=== PATIENT | female | born 1990 | race Caucasian/White ===

== ENCOUNTER 2018-03-20 18:40 | Emergency (ER) | payer SELFPAY ==
[~2018-03-20] VITALS: Ht 160 cm; Wt 80.7 kg
--- NOTE | 2018-03-20 18:54 | ED.ADGEN ---
Past History Past Medical History: UTI Additional Past Medical Histor: ovarian cysts Adult General Chief Complaint Chief Complaint ".. I ve had pelvic problems for a while... I ve followed at [facility]... they think I have an abnormality around my uterus. ... "..." I am trying to get rescheduled back in for another laparotomy." " The pain was too much tonight..." HPI HPI Patient is a 27 year old female who presents with above hx and complaints severe abdomen pain, nausea and vomiting. Pt. has been vomiting the last two days. Pain is generally in the lower pelvic area. Does appear more to the left. Does have rebound to the left. No history of trauma. No history of travel. No history of specific ill contacts. Has had approximately 25 sexual partners. No history of STDs. No history of bad food. History immunosuppression. Patient has an implantable control in Lt. arm. No hx of colitis or renal stones. Pt. has never had a colon scopic eval. Review of Systems Review of Systems Constitutional: Denies fever or chills [] Eyes: Denies change in visual acuity, redness, or eye pain [] HENT: Denies nasal congestion or sore throat [] Respiratory: Denies cough or shortness of breath [] Cardiovascular: No additional information not addressed in HPI [] GI: Complains of lower pelvic abdominal pain, nausea, vomiting,. Denies bloody stools or diarrhea [] : Denies dysuria or hematuria [] Musculoskeletal: Denies back pain or joint pain [] Integument: Denies rash or skin lesions [] Neurologic: Denies headache, focal weakness or sensory changes [] Endocrine: Denies polyuria or polydipsia [] All other systems were reviewed and found to be within normal limits, except as documented in this note. Family History Family History Noncontributory Current Medications Current Medications Current Medications Medications (Trade) Dose Ordered Sig/Mariely Start Time Stop Time Status Last Admin Dose Admin Ceftriaxone Sodium 1 gm/ Sodium Chloride 50 ml @ 100 mls/hr 1X ONCE 03/20/18 20:15 03/20/18 20:44 DC 03/20/18 21:07 100 MLS/HR Ceftriaxone Sodium (Rocephin) 1 gm STK-MED ONCE 03/20/18 20:37 03/20/18 20:38 DC Famotidine (Pepcid Vial) 20 mg 1X ONCE 03/20/18 19:30 03/20/18 19:31 DC 03/20/18 19:45 20 MG Iohexol (Omnipaque 240 Mg/ml) 30 ml 1X ONCE 03/20/18 20:30 03/20/18 20:31 DC 03/20/18 21:54 30 ML Iohexol (Omnipaque 300 Mg/ml) 75 ml 1X ONCE 03/20/18 20:30 03/20/18 20:31 DC 03/20/18 21:55 75 ML Ketorolac Tromethamine (Toradol 30mg Vial) 30 mg 1X ONCE 03/20/18 21:30 03/20/18 21:31 DC 03/20/18 21:26 30 MG Lactated Ringer's 1,000 ml @ 75 mls/hr 1X ONCE 03/20/18 21:15 03/20/18 23:40 DC 03/20/18 21:08 75 MLS/HR Magnesium Hydroxide (Milk Of Magnesia) 2,400 mg 1X ONCE 03/20/18 22:45 03/20/18 22:46 DC 03/20/18 22:58 2,400 MG Metronidazole 100 ml @ 100 mls/hr 1X ONCE 03/20/18 20:15 03/20/18 21:14 DC 03/20/18 22:07 100 MLS/HR Morphine Sulfate (Morphine 10mg Syringe) 10 mg 1X ONCE 03/20/18 19:30 03/20/18 19:31 DC 03/20/18 19:30 10 MG Ondansetron HCl (Zofran) 8 mg 1X ONCE 03/20/18 19:30 03/20/18 19:31 DC 03/20/18 19:45 8 MG Sodium Chloride 50 ml @ As Directed STK-MED ONCE 03/20/18 20:37 03/20/18 20:38 DC Allergies Allergies Allergies Coded Allergies Type Severity Reaction Last Updated Verified metoclopramide Allergy Unknown 03/20/18 Yes prochlorperazine Allergy Unknown 03/20/18 Yes sumatriptan Allergy Unknown 03/20/18 Yes Physical Exam Physical Exam Constitutional: Moderately acute distress, non-toxic appearance. [] HENT: Normocephalic, atraumatic, bilateral external ears normal, oropharynx moist, no oral exudates, nose normal. [] Eyes: PERRLA, EOMI, conjunctiva normal, no discharge. [] Neck: Normal range of motion, no tenderness, supple, no stridor. [] Cardiovascular:Heart rate regular rhythm, no murmur [] Lungs & Thorax: Bilateral breath sounds clear to auscultation [] Abdomen: Bowel sounds normal, soft, lower pelvic tenderness, no masses, no pulsatile masses. [] Vaginal exam has some mild discharge. Some cervical motion tenderness. Some adnexal tenderness on the left. Skin: Warm, dry, no erythema, no rash. [] Back: No tenderness, no CVA tenderness. [] Extremities: No tenderness, no cyanosis, no clubbing, ROM intact, no edema. [] Neurologic: Alert and oriented X 3, normal motor function, normal sensory function, no focal deficits noted. [] Psychologic: Affect anxious, judgement normal, mood normal. [] Current Patient Data Vital Signs Vital Signs Date Time Temp Pulse Resp B/P (MAP) Pulse Ox O2 Delivery O2 Flow Rate FiO2 03/20/18 23:14 95 20 122/46 (71) 98 Room Air 03/20/18 18:50 99.1 Lab Results Laboratory Tests Test 03/20/18 19:00 03/20/18 19:06 03/20/18 19:49 Urine Collection Type Clean catch Urine Color [place] Urine Clarity Clear Urine pH 5.5 Urine Specific [place] 1.025 Urine Protein Neg (NEG-TRACE) Urine Glucose (UA) Neg mg/dL (NEG) Urine Ketones (Stick) 15 mg/dL (NEG) Urine Blood Neg (NEG) Urine Nitrite Neg (NEG) Urine Bilirubin Neg (NEG) Urine Urobilinogen Dipstick 0.2 mg/dL (0.2 mg/dL) Urine Leukocyte Esterase Neg (NEG) Urine RBC 0 /HPF (0-2) Urine WBC 1-4 /HPF (0-4) Urine Squamous Epithelial Cells Occ /LPF Urine Bacteria Few /HPF (0-FEW) Urine Mucus Mod /LPF Urine Opiates Screen Neg (NEG) Urine Methadone Screen Neg (NEG) Urine Barbiturates Neg (NEG) Urine Phencyclidine Screen Neg (NEG) Urine Amphetamine/Methamphetamine Neg (NEG) Urine Benzodiazepines Screen Neg (NEG) Urine Cocaine Screen Neg (NEG) Urine Cannabinoids Screen Neg (NEG) Urine Ethyl Alcohol Neg (NEG) POC Urine HCG, Qualitative hcg negative (Negative) White Blood Count 6.5 x10^3/uL (4.0-11.0) Red Blood Count 4.44 x10^6/uL (3.50-5.40) Hemoglobin 13.7 g/dL (12.0-15.5) Hematocrit 39.1 % (36.0-47.0) Mean Corpuscular Volume 88 fL (79-100) Mean Corpuscular Hemoglobin 31 pg (25-35) Mean Corpuscular Hemoglobin Concent 35 g/dL (31-37) Red Cell Distribution Width 12.7 % (11.5-14.5) Platelet Count 245 x10^3/uL (140-400) Neutrophils (%) (Auto) 46 % (31-73) Lymphocytes (%) (Auto) 45 % (24-48) Monocytes (%) (Auto) 9 % (0-9) Eosinophils (%) (Auto) 0 % (0-3) Basophils (%) (Auto) 1 % (0-3) Neutrophils # (Auto) 3.0 x10^3uL (1.8-7.7) Lymphocytes # (Auto) 2.9 x10^3/uL (1.0-4.8) Monocytes # (Auto) 0.6 x10^3/uL (0.0-1.1) Eosinophils # (Auto) 0.0 x10^3/uL (0.0-0.7) Basophils # (Auto) 0.0 x10^3/uL (0.0-0.2) Prothrombin Time 10.3 SEC (9.4-11.4) Prothrombin Time INR 1.0 (0.9-1.1) PTT 27 SEC (23-33) Sodium Level 138 mmol/L (136-145) Potassium Level 3.7 mmol/L (3.5-5.1) Chloride Level 104 mmol/L (98-107) Carbon Dioxide Level 25 mmol/L (21-32) Anion Gap 9 (6-14) Blood Urea Nitrogen 11 mg/dL (7-20) Creatinine 0.9 mg/dL (0.6-1.0) Estimated GFR (Cockcroft-Gault) 75.1 Glucose Level 85 mg/dL (70-99) Calcium Level 9.5 mg/dL (8.5-10.1) Total Bilirubin 0.4 mg/dL (0.2-1.0) Direct Bilirubin 0.1 mg/dL (0.0-0.2) Aspartate Amino Transferase (AST) 18 U/L (15-37) Alanine Aminotransferase (ALT) 32 U/L (14-59) Alkaline Phosphatase 113 U/L (46-116) Total Protein 7.5 g/dL (6.4-8.2) Albumin 3.9 g/dL (3.4-5.0) Lipase 227 U/L (73-393) Microbiology 03/20/18 Wet Prep - Final, Complete Microbiology 03/20/18 Wet Prep - Final, Complete EKG EKG [] Radiology/Procedures Radiology/Procedures My interpretation of acute abdomen film shows no acute cardiopulmonary findings. No free air in the diaphragm. Nonobstructive bowel gas pattern.[] Course & Med Decision Making Course & Med Decision Making Pertinent Labs and Imaging studies reviewed. (See chart for details) Push fluids. Take tylenol and ibuprofen for pain. Take vicoprofen up 4 x day for marked pain. Clear fluids only x 48 hrs to allow bowel rest. Keep follow up with primary. Re-exam if no improvement. Zofran for nausea and vomiting. [] Final Impression Final Impression 1. Abdomen pain[] 2. Ovarian Cyst.- Polycystic ovarian Dragon Disclaimer Dragon Disclaimer This electronic medical record was generated, in whole or in part, using a voice recognition dictation system. EMY ABEL MD Mar 20, 2018 18:54
[2018-03-20] MEDS ORDERED: ONDANSETRON PF 4 MG/2 ML VIAL. IV ONE (19:30)
[2018-03-20] MEDS ORDERED: MORPHINE SULFATE 10 MG/ML SYRINGE. SQ ONE (19:30)
[2018-03-20] MEDS ORDERED: FAMOTIDINE 20 MG/2 ML VIAL IVP ONE (19:30)
[2018-03-20] MEDS ORDERED: IV RINGERS SOLUTION,LACTATED 1,000 ML IV SCH (19:30)
[2018-03-20 19:32] LABS: AMPHETAMINE/METHAMPHETAMINE NEG (NEG); BARBITURATES NEG (NEG); BENZODIAZEPINES NEG (NEG); CANNABINOIDS NEG (NEG); COCAINE NEG (NEG); METHADONE NEG (NEG); OPIATES NEG (NEG); PHENCYCLIDINE NEG (NEG)
[2018-03-20 19:34] LABS: BILIRUBIN,URINE NEG (NEG); CLARITY,URINE CLEAR; COLOR,URINE AMBER; GLUCOSE,URINE NEG (NEG)
[2018-03-20 19:35] LABS: BACTERIA,URINE FEW /HPF (0-FEW); NITRITE,URINE NEG (NEG); RBC,URINE 0 /HPF (0-2); SQUAMOUS EPITHELIAL CELL,UR OCC /LPF; UROBILINOGEN,URINE 0.2 mg/dL (0.2 mg/dL)
--- NOTE | 2018-03-20 19:47 | RAD ---
EXAM: Two view abdomen with one view chest HISTORY: Abdominal pain, fever, nausea. COMPARISON: None. FINDINGS: A frontal view of the chest and supine/upright views of the abdomen are obtained. There are no confluent infiltrates. There is no pneumothorax or pleural effusion. The heart is not enlarged. There is no pneumoperitoneum. There are no distended small bowel loops or significant air-fluid levels. There is gas distally. IMPRESSION: 1. No confluent infiltrates. 2. No evidence of obstruction. Electronically signed by: Lexie Hall MD (03/20/2018 7:44 PM) [facility]
[2018-03-20 20:12] LABS: BASO % 1 % (0-3); EOS % 0 % (0-3); HEMATOCRIT 39.1 % (36.0-47.0); HEMOGLOBIN 13.7 g/dL (12.0-15.5); LYMPH # 2.9 x10^3/uL (1.0-4.8); LYMPH % 45 % (24-48); MEAN CORPUSCULAR HEMOGLOBIN 31 pg (25-35); MEAN CORPUSCULAR HGB CONC 35 g/dL (31-37); MEAN CORPUSCULAR VOLUME 88 fL (79-100); MONO # 0.6 x10^3/uL (0.0-1.1); MONO % 9 % (0-9); NEUT % 46 % (31-73); PLATELET COUNT 245 x10^3/uL (140-400); RED BLOOD COUNT 4.44 x10^6/uL (3.50-5.40); RED CELL DISTRIBUTION WIDTH 12.7 % (11.5-14.5); WHITE BLOOD COUNT 6.5 x10^3/uL (4.0-11.0)
[2018-03-20 20:25] LABS: ALBUMIN 3.9 g/dL (3.4-5.0); CALCIUM 9.5 mg/dL (8.5-10.1); CREATININE 0.9 mg/dL (0.6-1.0); DIRECT BILIRUBIN 0.1 mg/dL (0.0-0.2); GFR 75.1; POTASSIUM 3.7 mmol/L (3.5-5.1); TOTAL BILIRUBIN 0.4 mg/dL (0.2-1.0); TOTAL PROTEIN 7.5 g/dL (6.4-8.2)
[2018-03-20] MEDS ORDERED: IOHEXOL 240 MG/ML 50ML VIAL. PO ONE (20:30)
[2018-03-20] MEDS ORDERED: IOHEXOL 300 MG/ML 75 ML VIAL. IV ONE (20:30)
[2018-03-20] MEDS ORDERED: IV NORMAL SALINE 50ML 50 ML ONE (20:37)
[2018-03-20] MEDS ORDERED: cefTRIAXone SODIUM 1 GM VIAL IV ONE (20:37)
[2018-03-20] MEDS ORDERED: IV RINGERS SOLUTION,LACTATED 1,000 ML IV ONE (21:15)
[2018-03-20] MEDS ORDERED: KETOROLAC 30 MG/ML VIAL. IV ONE (21:30)
--- NOTE | 2018-03-20 22:14 | RAD ---
EXAM: CT ABDOMEN/PELVIS WITH CONTRAST. HISTORY: Abdominal pain, nausea and vomiting. TECHNIQUE: Computed tomography of the abdomen and pelvis was performed after the intravenous administration of 75 mL Omnipaque 300. COMPARISON: None. FINDINGS: Lung windows through the visualized portions of the bases reveal mild atelectasis. Bone windows reveal no suspicious lesions. The liver, spleen, adrenal glands, gallbladder, and pancreas are unremarkable. Tiny calculi are suspected in the right renal interpolar region measuring <2 mm. There are no ureteral calculi or hydronephrosis. Multiple peripheral ovarian follicles bilaterally suggest polycystic ovarian syndrome. The uterus is unremarkable. The appendix is not visualized but there is no evidence of appendicitis. There is no small bowel obstruction. No inflammatory changes are identified. IMPRESSION: 1. No cause for pain is identified. 2. Tiny <2 mm right renal calculus. 3. Correlate clinically for polycystic ovarian syndrome. *One or more of the following individualized dose reduction techniques were utilized for this examination: 1. Automated exposure control. 2. Adjustment of the mA and/or kV according to patient size. 3. Use of iterative reconstruction technique. Electronically signed by: Lexie Hall MD (03/20/2018 10:11 PM) [facility]
[2018-03-20] MEDS ORDERED: HYDR-79 PO (22:41)
[2018-03-20] MEDS ORDERED: ONDA8TAB12 PO (22:43)
[2018-03-20] MEDS ORDERED: MAGNESIUM HYDROXIDE 2,400 MG/30 ML ORAL.SUSP. PO ONE (22:45)
[2018-03-20] MEDS ORDERED: DOXY100T9 PO (22:57)
[2018-03-20 23:14] VITALS: BP 122/46
[2018-03-22 15:11] LABS: CHLAMYDIA PROBE Negative (Negative)
== END 2018-03-20 23:17 | disposition home or self-care (01) ==
LOC: ER 18:40
DX: E28.2 Polycystic ovarian syndrome (principal); Z87.440 Personal history of urinary (tract) infections; Z88.8 Allergy status to other drugs, medicaments and biological substances
CPT/HCPCS: 36415; 74022; 74177; 80048; 80076; 80307; 81001; 81025; 83690; 85025; 85610; 85730; 87480; 87491; 87510; 87591; 87660; 96361; 96365; 96372; 96375; 99285; J0696; J1885; J2270; J2405; J3490; J7120; Q0111; Q9966; Q9967; S0028; G0479

== ENCOUNTER 2018-03-27 16:35 | Emergency (ER) | payer SELFPAY ==
[~2018-03-27] VITALS: Ht 160 cm; Wt 81.6 kg
[~2018-03-27 16:35] MED LIST: DOXY100T9 PO; HYDR-79 PO; ONDA8TAB12 PO
--- NOTE | 2018-03-27 17:24 | PHYS DOC ---
Past History Past Medical History: UTI Additional Past Medical Histor: ovarian cysts Past Surgical History: Appendectomy, Tonsillectomy, Other Alcohol Use: Occasionally Drug Use: None Adult General Chief Complaint Chief Complaint: ABDOMINAL PAIN [place] [employer] HPI Patient is a 27 year old female who presents with complaining of left lower quadrant pain. Patient complaining of an onset of left lower quadrant pain since yesterday as a stabbing pain with radiation to her back and associated with nausea and rated her pain 10 out of 10. Patient states she was seen in this emergency room one week ago and was told she had ovarian cysts and thinks one of her ovarian cyst is bursting and causing the pain. Patient states she had prescription of Vicoprofen that helping for her pain but since she ran out of the pain medication her pain getting force. Patient denies , vaginal bleeding or discharge, fever and chills, vomiting and diarrhea, urinary symptom. Review of Systems Review of Systems Constitutional: Denies fever or chills [] Eyes: Denies change in visual acuity, redness, or eye pain [] HENT: Denies nasal congestion or sore throat [] Respiratory: Denies cough or shortness of breath [] Cardiovascular: No additional information not addressed in HPI [] GI: Reports abdominal pain, nausea, denies vomiting, bloody stools or diarrhea [ ] : Denies dysuria or hematuria [] Musculoskeletal: Denies back pain or joint pain [] Integument: Denies rash or skin lesions [] Neurologic: Denies headache, focal weakness or sensory changes [] Endocrine: Denies polyuria or polydipsia [] All other systems were reviewed and found to be within normal limits, except as documented in this note. Allergies Allergies Allergies Coded Allergies Type Severity Reaction Last Updated Verified metoclopramide Allergy Unknown 03/20/18 Yes prochlorperazine Allergy Unknown 03/20/18 Yes sumatriptan Allergy Unknown 03/20/18 Yes Physical Exam Physical Exam Constitutional: Well nourished, mild distress, non-toxic appearance. [] HENT: Normocephalic, atraumatic, oropharynx moist, no oral exudates, nose normal. [] Eyes: PERRLA, EOMI, conjunctiva normal, no discharge. [] Neck: Normal range of motion, no tenderness, supple, no stridor. [] Cardiovascular:Heart rate regular rhythm, no murmur [] Lungs & Thorax: Bilateral breath sounds clear to auscultation [] Abdomen: Bowel sounds normal, soft, left lower quadrant guarding, no tenderness , no masses, no pulsatile masses. [] Skin: Warm, dry, no erythema, no rash. [] Back: No tenderness, no CVA tenderness. [] Extremities: No tenderness, no cyanosis, no clubbing, ROM intact, no edema. [] Neurologic: Alert and oriented X 3, normal motor function, normal sensory function, no focal deficits noted. [] Psychologic: Affect anxious, judgement normal, mood normal. [] Current Patient Data Vital Signs Vital Signs Date Time Temp Pulse Resp B/P (MAP) Pulse Ox O2 Delivery O2 Flow Rate FiO2 03/27/18 16:40 99.9 109 20 96 Room Air EKG EKG [] Radiology/Procedures Radiology/Procedures [] Course & Med Decision Making Course & Med Decision Making Pertinent Labs and Imaging studies are pending. Evaluation of patient in ER showed 27-year-old female patient with complaining of left lower quadrant pain since last week that getting worse since yesterday. Labs and ultrasound of pelvic is pending. Patient's care transferred to Dr. James at 1800. Dragon Disclaimer Dragon Disclaimer This electronic medical record was generated, in whole or in part, using a voice recognition dictation system. Departure Departure: Impression: Primary Impression: Left lower quadrant pain Referrals: NON,STAFF (PCP) ANA SHEN MD Mar 27, 2018 17:24
[2018-03-27] MEDS ORDERED: KETOROLAC 30 MG/ML VIAL. IV ONE (17:30)
[2018-03-27] MEDS ORDERED: ONDANSETRON PF 4 MG/2 ML VIAL. IV ONE (17:30)
[2018-03-27] MEDS ORDERED: IV NORMAL SALINE 1,000ML 1,000 ML IV SCH (17:30)
[2018-03-27 17:50] LABS: BASO % 1 % (0-3); EOS % 0 % (0-3); HEMATOCRIT 37.9 % (36.0-47.0); HEMOGLOBIN 13.1 g/dL (12.0-15.5); LYMPH # 2.7 x10^3/uL (1.0-4.8); LYMPH % 49 % (24-48); MEAN CORPUSCULAR HEMOGLOBIN 31 pg (25-35); MEAN CORPUSCULAR HGB CONC 35 g/dL (31-37); MEAN CORPUSCULAR VOLUME 89 fL (79-100); MONO # 0.3 x10^3/uL (0.0-1.1); MONO % 5 % (0-9); NEUT # 2.6 x10^3uL (1.8-7.7); NEUT % 46 % (31-73); PLATELET COUNT 224 x10^3/uL (140-400); RED BLOOD COUNT 4.24 x10^6/uL (3.50-5.40); RED CELL DISTRIBUTION WIDTH 12.8 % (11.5-14.5); WHITE BLOOD COUNT 5.5 x10^3/uL (4.0-11.0)
[2018-03-27 17:53] LABS: BARBITURATES NEG (NEG); BENZODIAZEPINES NEG (NEG); CANNABINOIDS NEG (NEG); COCAINE NEG (NEG); METHADONE NEG (NEG); OPIATES POS (NEG); PHENCYCLIDINE NEG (NEG)
[2018-03-27 17:57] LABS: AMPHETAMINE/METHAMPHETAMINE NEG (NEG); BILIRUBIN,URINE NEG (NEG); CLARITY,URINE CLEAR; COLOR,URINE YELLOW; GLUCOSE,URINE NEG (NEG)
[2018-03-27 17:58] LABS: BACTERIA,URINE FEW /HPF (0-FEW); NITRITE,URINE NEG (NEG); SQUAMOUS EPITHELIAL CELL,UR MOD /LPF; UROBILINOGEN,URINE 0.2 mg/dL (0.2 mg/dL)
[2018-03-27 17:59] LABS: ALBUMIN 3.5 g/dL (3.4-5.0); ALBUMIN/GLOBULIN RATIO 1.1 (1.0-1.7); CALCIUM 8.6 mg/dL (8.5-10.1); CREATININE 0.9 mg/dL (0.6-1.0); GFR 75.1; POTASSIUM 3.9 mmol/L (3.5-5.1); TOTAL BILIRUBIN 0.2 mg/dL (0.2-1.0); TOTAL PROTEIN 6.6 g/dL (6.4-8.2)
[2018-03-27] MEDS ORDERED: HYDROcodone/APAP 5/325MG 1 TAB TABLET PO ONE (18:30)
--- NOTE | 2018-03-27 20:06 | RAD ---
Pelvic ultrasound History: Left lower quadrant pain Comparison: CT abdomen pelvis March 20, 2018 Technique: Transabdominal imaging of the pelvis was performed. Patient declined endovaginal imaging. Findings: The uterus measures 7.0 cm in length. Uterus is suboptimally visualized. Endometrial stripe is not well-seen, but does not appear grossly thickened. Ovaries are not seen. No gross adnexal masses are seen. Impression: 1. Limited examination. Electronically signed by: Carlos Lopez MD (03/27/2018 8:03 PM) [facility]
--- NOTE | 2018-03-27 20:16 | PHYS DOC ---
Past History Past Medical History: UTI Additional Past Medical Histor: ovarian cysts Past Surgical History: Appendectomy, Tonsillectomy, Other Alcohol Use: Occasionally Drug Use: None Adult General Chief Complaint Chief Complaint: ABDOMINAL PAIN HPI HPI Patient is a [age] year old [sex] who presents with [] Review of Systems Review of Systems See my colleague's note Current Medications Current Medications Current Medications Medications (Trade) Dose Ordered Sig/Mariely Start Time Stop Time Status Last Admin Dose Admin Acetaminophen/ Hydrocodone Bitart (Lortab 5/325) 1 tab 1X ONCE 03/27/18 18:30 03/27/18 18:31 DC 03/27/18 18:40 1 TAB Ketorolac Tromethamine (Toradol 30mg Vial) 30 mg 1X ONCE 03/27/18 17:30 03/27/18 17:31 DC 03/27/18 17:51 30 MG Ondansetron HCl (Zofran) 4 mg 1X ONCE 03/27/18 17:30 03/27/18 17:31 DC 03/27/18 17:52 4 MG Sodium Chloride 1,000 ml @ 1,000 mls/hr Q1H 03/27/18 17:30 03/27/18 18:29 DC 03/27/18 17:52 1,000 MLS/HR Allergies Allergies Allergies Coded Allergies Type Severity Reaction Last Updated Verified metoclopramide Allergy Unknown 03/20/18 Yes prochlorperazine Allergy Unknown 03/20/18 Yes sumatriptan Allergy Unknown 03/20/18 Yes Physical Exam Physical Exam See my colleague's note Current Patient Data Vital Signs Vital Signs Date Time Temp Pulse Resp B/P (MAP) Pulse Ox O2 Delivery O2 Flow Rate FiO2 03/27/18 18:40 22 Room Air 03/27/18 16:40 99.9 109 96 Lab Results Laboratory Tests Test 03/27/18 17:05 03/27/18 17:35 03/27/18 17:37 Urine Collection Type Void Urine Color Yellow Urine Clarity Clear Urine pH 6.0 Urine Specific [place] 1.015 Urine Protein Neg (NEG-TRACE) Urine Glucose (UA) Neg mg/dL (NEG) Urine Ketones (Stick) Neg mg/dL (NEG) Urine Blood Neg (NEG) Urine Nitrite Neg (NEG) Urine Bilirubin Neg (NEG) Urine Urobilinogen Dipstick 0.2 mg/dL (0.2 mg/dL) Urine Leukocyte Esterase Neg (NEG) Urine RBC 1-2 /HPF (0-2) Urine WBC 1-4 /HPF (0-4) Urine Squamous Epithelial Cells Mod /LPF Urine Bacteria Few /HPF (0-FEW) Urine Mucus Slight /LPF Urine Opiates Screen Pos (NEG) Urine Methadone Screen Neg (NEG) Urine Barbiturates Neg (NEG) Urine Phencyclidine Screen Neg (NEG) Urine Amphetamine/Methamphetamine Neg (NEG) Urine Benzodiazepines Screen Neg (NEG) Urine Cocaine Screen Neg (NEG) Urine Cannabinoids Screen Neg (NEG) Urine Ethyl Alcohol Neg (NEG) White Blood Count 5.5 x10^3/uL (4.0-11.0) Red Blood Count 4.24 x10^6/uL (3.50-5.40) Hemoglobin 13.1 g/dL (12.0-15.5) Hematocrit 37.9 % (36.0-47.0) Mean Corpuscular Volume 89 fL (79-100) Mean Corpuscular Hemoglobin 31 pg (25-35) Mean Corpuscular Hemoglobin Concent 35 g/dL (31-37) Red Cell Distribution Width 12.8 % (11.5-14.5) Platelet Count 224 x10^3/uL (140-400) Neutrophils (%) (Auto) 46 % (31-73) Lymphocytes (%) (Auto) 49 % (24-48) H Monocytes (%) (Auto) 5 % (0-9) Eosinophils (%) (Auto) 0 % (0-3) Basophils (%) (Auto) 1 % (0-3) Neutrophils # (Auto) 2.6 x10^3uL (1.8-7.7) Lymphocytes # (Auto) 2.7 x10^3/uL (1.0-4.8) Monocytes # (Auto) 0.3 x10^3/uL (0.0-1.1) Eosinophils # (Auto) 0.0 x10^3/uL (0.0-0.7) Basophils # (Auto) 0.0 x10^3/uL (0.0-0.2) Sodium Level 140 mmol/L (136-145) Potassium Level 3.9 mmol/L (3.5-5.1) Chloride Level 107 mmol/L (98-107) Carbon Dioxide Level 23 mmol/L (21-32) Anion Gap 10 (6-14) Blood Urea Nitrogen 11 mg/dL (7-20) Creatinine 0.9 mg/dL (0.6-1.0) Estimated GFR (Cockcroft-Gault) 75.1 BUN/Creatinine Ratio 12 (6-20) Glucose Level 141 mg/dL (70-99) H Calcium Level 8.6 mg/dL (8.5-10.1) Total Bilirubin 0.2 mg/dL (0.2-1.0) Aspartate Amino Transferase (AST) 18 U/L (15-37) Alanine Aminotransferase (ALT) 32 U/L (14-59) Alkaline Phosphatase 105 U/L (46-116) Total Protein 6.6 g/dL (6.4-8.2) Albumin 3.5 g/dL (3.4-5.0) Albumin/Globulin Ratio 1.1 (1.0-1.7) POC Urine HCG, Qualitative hcg negative (Negative) EKG EKG [] Radiology/Procedures Radiology/Procedures [] Impressions: Pelvic ultrasound History: Left lower quadrant pain Comparison: CT abdomen pelvis March 20, 2018 Technique: Transabdominal imaging of the pelvis was performed. Patient declined endovaginal imaging. Findings: The uterus measures 7.0 cm in length. Uterus is suboptimally visualized. Endometrial stripe is not well-seen, but does not appear grossly thickened. Ovaries are not seen. No gross adnexal masses are seen. Impression: 1. Limited examination. Electronically signed by: Carlos Claire MD (03/27/2018 8:03 PM) [facility] DICTATED AND SIGNED BY: CARLOS CLAIRE MD DATE: 03/27/182001 CC: MONIKA PETERS DO; ANA SHEN MD; NON,STAFF Course & Med Decision Making Course & Med Decision Making Pertinent Labs and Imaging studies reviewed. (See chart for details) I am taking over the patient from Dr. Shen at 1800. The patient's labs are unremarkable. Her ultrasound is limited because she refused a transvaginal. We'll was visualized is unremarkable. I do not see a source for the patient's discomfort. He does not appear to be life-threatening. Patient was already given pain medication by my colleague recently. The patient said many prescriptions in the last 1 year from more than a dozen providers. I stressed that she needs a primary physician to manage her. She is stable for discharge at this time. [] Dragon Disclaimer Dragon Disclaimer This electronic medical record was generated, in whole or in part, using a voice recognition dictation system. Departure Departure: Impression: Primary Impression: Left lower quadrant pain Referrals: NON,STAFF (PCP) MONIKA PETERS DO Mar 27, 2018 20:16
[2018-03-27 20:46] VITALS: BP 127/56
== END 2018-03-27 20:25 | disposition home or self-care (01) ==
LOC: ER 16:35
DX: R10.32 Left lower quadrant pain (principal); Z87.440 Personal history of urinary (tract) infections; Z90.89 Acquired absence of other organs; Z88.8 Allergy status to other drugs, medicaments and biological substances; Z88.1 Allergy status to other antibiotic agents
CPT/HCPCS: 36415; 76856; 80053; 80307; 81001; 81025; 85025; 96374; 96375; 99285; J1885; J2405; G0479; J7030

== ENCOUNTER 2018-07-17 01:45 | Emergency (ER) | payer BC ==
[~2018-07-17] VITALS: Ht 160 cm; Wt 86.2 kg
[~2018-07-17 01:45] MED LIST changes: +HYDR-1179 PO; -HYDR-79 PO
--- NOTE | 2018-07-17 02:03 | ED.ADGEN ---
Past History Past Medical History: Anxiety, Bipolar, Depression, GERD, Kidney Stones, Migraines, Ovarian Cyst, UTI Additional Past Medical Histor: ovarian cysts Past Surgical History: Appendectomy, Tonsillectomy, Other Alcohol Use: Occasionally Drug Use: None Adult General Chief Complaint Chief Complaint "... I having really bad abd. and Lt flank pain.. I can't sleep... It is really severe.. " HPI HPI Patient is a 27 year old female who presents with above hx and complaints left flank and abdomen pain. Patient states low level of pain started yesterday but has had severe pain all day. Patient states it's not like her kidney stone pain. Patient states nothing helps her makes it better. Patient did eat crackers today. Patient states she did have a small stool today. Patient denies any dysuria. Patient denies any trauma or specific ill contacts. Patient denies any history immunosuppression. No recent travel. No history of trauma. No contact with ill animals, poultry, reptiles or amphibians. Patient does have history of IBS, ovarian cysts, kidney stones, UTIs, constipation, depression, bipolar disorder, PTSD, anxiety disorder. Pt. has had a previous appendectomy, and exploratory laparoscopic scopic evaluations for evaluation for endometriosis. Pt. has hx of reportedly normal colon scopic exam. Patient denies any previous history of STDs. Patient has had approximately 25 different sexual partners. Patient denies any vaginal discharge currently. Patient normally follows with Dr. Camejo at [facility]. Review of Systems Review of Systems Constitutional: Denies fever or chills [] Eyes: Denies change in visual acuity, redness, or eye pain [] HENT: Denies nasal congestion or sore throat [] Respiratory: Denies cough or shortness of breath [] Cardiovascular: No additional information not addressed in HPI [] GI: Denies abdominal pain, nausea, vomiting, bloody stools or diarrhea [] : Denies dysuria or hematuria [] Musculoskeletal: Denies back pain or joint pain [] Integument: Denies rash or skin lesions [] Neurologic: Denies headache, focal weakness or sensory changes [] Endocrine: Denies polyuria or polydipsia [] All other systems were reviewed and found to be within normal limits, except as documented in this note. Family History Family History Noncontributory Current Medications Current Medications Current Medications Medications (Trade) Dose Ordered Sig/Mariely Start Time Stop Time Status Last Admin Dose Admin Info (Do NOT chart on this entry -- for MONITORING) 1 each PRN DAILY PRN 07/17/18 03:30 07/19/18 03:29 Iohexol (Omnipaque 240 Mg/ml) 50 ml 1X ONCE 07/17/18 03:30 07/17/18 03:31 DC 07/17/18 05:56 50 ML Iohexol (Omnipaque 300 Mg/ml) 75 ml 1X ONCE 07/17/18 03:30 07/17/18 03:31 DC 07/17/18 05:56 75 ML Ketorolac Tromethamine (Toradol 30mg Vial) 30 mg 1X ONCE 07/17/18 03:30 07/17/18 03:31 DC 07/17/18 03:22 30 MG Lactated Ringer's 1,000 ml @ 1,000 mls/hr 1X ONCE 07/17/18 03:30 07/17/18 04:29 DC 07/17/18 03:21 1,000 MLS/HR Magnesium Hydroxide (Milk Of Magnesia) 2,400 mg 1X ONCE 07/17/18 03:30 07/17/18 03:31 DC 07/17/18 03:30 2,400 MG Morphine Sulfate (Morphine 10mg Syringe) 10 mg 1X ONCE 07/17/18 04:30 07/17/18 04:31 DC 07/17/18 04:24 10 MG Ondansetron HCl (Zofran) 8 mg 1X ONCE 07/17/18 03:30 07/17/18 03:31 DC 07/17/18 03:22 8 MG Allergies Allergies Allergies Coded Allergies Type Severity Reaction Last Updated Verified metoclopramide Allergy Unknown 03/20/18 Yes prochlorperazine Allergy Unknown 03/20/18 Yes sumatriptan Allergy Unknown 03/20/18 Yes Physical Exam Physical Exam Constitutional: Well developed, well nourished, reports acute distress, non- toxic appearance. [] HENT: Normocephalic, atraumatic, bilateral external ears normal, oropharynx moist, no oral exudates, nose ring] Eyes: PERRLA, EOMI, conjunctiva normal, no discharge. [] Glasses Neck: Normal range of motion, no tenderness, supple, no stridor. [] Cardiovascular:Heart rate regular rhythm, no murmur [] Lungs & Thorax: Bilateral breath sounds equal at apexes with a few scattered wheezes on auscultation [] Abdomen: Bowel sounds hyperactive, soft, left abdomen and flank tenderness, no masses, no pulsatile masses. [] No true rebound. No true psoas. Old surgical scars. Distended. Patient more comfortable laying on her right side with legs bent up. Obese. Skin: Warm, dry, no erythema, no rash. [] Back: No tenderness, no CVA tenderness. [] Extremities: No tenderness, no cyanosis, no clubbing, ROM intact, no edema. [] Neurologic: Alert and oriented X 3, normal motor function, normal sensory function, no focal deficits noted. [] Psychologic: Affect very anxious, judgement normal, mood depressed. Current Patient Data Vital Signs Vital Signs Date Time Temp Pulse Resp B/P (MAP) Pulse Ox O2 Delivery O2 Flow Rate FiO2 07/17/18 04:55 18 98 Room Air 07/17/18 04:30 78 120/83 (95) 07/17/18 01:45 98.3 Lab Results Laboratory Tests Test 07/17/18 01:55 07/17/18 02:00 Urine Collection Type Unknown Urine Color Yellow Urine Clarity Clear Urine pH 7.0 Urine Specific [place] 1.025 Urine Protein Neg (NEG-TRACE) Urine Glucose (UA) Neg mg/dL (NEG) Urine Ketones (Stick) Neg mg/dL (NEG) Urine Blood Neg (NEG) Urine Nitrite Neg (NEG) Urine Bilirubin Neg (NEG) Urine Urobilinogen Dipstick 1 mg/dL (0.2 mg/dL) Urine Leukocyte Esterase Neg (NEG) Urine RBC 0 /HPF (0-2) Urine WBC Occ /HPF (0-4) Urine Squamous Epithelial Cells Few /LPF Urine Bacteria 0 /HPF (0-FEW) Urine Test Negative (NEG) Urine Opiates Screen Neg (NEG) Urine Methadone Screen Neg (NEG) Urine Barbiturates Neg (NEG) Urine Phencyclidine Screen Neg (NEG) Urine Amphetamine/Methamphetamine Neg (NEG) Urine Benzodiazepines Screen Neg (NEG) Urine Cocaine Screen Neg (NEG) Urine Cannabinoids Screen Neg (NEG) Urine Ethyl Alcohol Neg (NEG) White Blood Count 8.9 x10^3/uL (4.0-11.0) Red Blood Count 4.41 x10^6/uL (3.50-5.40) Hemoglobin 13.5 g/dL (12.0-15.5) Hematocrit 40.3 % (36.0-47.0) Mean Corpuscular Volume 91 fL (79-100) Mean Corpuscular Hemoglobin 31 pg (25-35) Mean Corpuscular Hemoglobin Concent 34 g/dL (31-37) Red Cell Distribution Width 12.9 % (11.5-14.5) Platelet Count 263 x10^3/uL (140-400) Neutrophils (%) (Auto) 44 % (31-73) Lymphocytes (%) (Auto) 50 % (24-48) H Monocytes (%) (Auto) 6 % (0-9) Eosinophils (%) (Auto) 0 % (0-3) Basophils (%) (Auto) 0 % (0-3) Neutrophils # (Auto) 3.9 x10^3uL (1.8-7.7) Lymphocytes # (Auto) 4.4 x10^3/uL (1.0-4.8) Monocytes # (Auto) 0.6 x10^3/uL (0.0-1.1) Eosinophils # (Auto) 0.0 x10^3/uL (0.0-0.7) Basophils # (Auto) 0.0 x10^3/uL (0.0-0.2) Platelet Estimate Adequate (ADEQUATE) Sodium Level 143 mmol/L (136-145) Potassium Level 3.6 mmol/L (3.5-5.1) Chloride Level 107 mmol/L (98-107) Carbon Dioxide Level 24 mmol/L (21-32) Anion Gap 12 (6-14) Blood Urea Nitrogen 12 mg/dL (7-20) Creatinine 0.8 mg/dL (0.6-1.0) Estimated GFR (Cockcroft-Gault) 86.0 Glucose Level 105 mg/dL (70-99) H Calcium Level 8.7 mg/dL (8.5-10.1) Amylase Level 56 U/L (25-115) Lipase 186 U/L (73-393) EKG EKG [] Radiology/Procedures Radiology/Procedures My interpretation of acute abdomen shows no acute cardiopulmonary findings, no free air under diaphragm. There does appear to be stool throughout the colon.[] CT abdomen shows no acute surgical pathology, hydronephrosis or obvious inflammatory findings. See formal report when available. Course & Med Decision Making Course & Med Decision Making Pertinent Labs and Imaging studies reviewed. (See chart for details) Patient to stay on a clear fluid diet only for the next 2 days. No solid or milk products. Clear fluids only to allow bowel rest. Take another dose of milk of magnesia with at home. Must follow-up primary care. Return if any concerns. Take Tylenol and ibuprofen for pain. [] Final Impression Final Impression 1. Abdomen and Lt. Flank pain[] 2. Constipation Dragon Disclaimer Dragon Disclaimer This electronic medical record was generated, in whole or in part, using a voice recognition dictation system. Discharge Summary Visit Information Final Diagnosis Problems Medical Problems: (1) Pain in the abdomen Status: Acute Brief Hospital Course Allergies Allergies Coded Allergies Type Severity Reaction Last Updated Verified metoclopramide Allergy Unknown 03/20/18 Yes prochlorperazine Allergy Unknown 03/20/18 Yes sumatriptan Allergy Unknown 03/20/18 Yes Vital Signs Vital Signs Date Time Temp Pulse Resp B/P (MAP) Pulse Ox O2 Delivery O2 Flow Rate FiO2 07/17/18 04:55 18 98 Room Air 07/17/18 04:30 78 120/83 (95) 07/17/18 01:45 98.3 Lab Results Laboratory Tests Test 07/17/18 01:55 07/17/18 02:00 Urine Collection Type Unknown Urine Color Yellow Urine Clarity Clear Urine pH 7.0 Urine Specific [place] 1.025 Urine Protein Neg (NEG-TRACE) Urine Glucose (UA) Neg mg/dL (NEG) Urine Ketones (Stick) Neg mg/dL (NEG) Urine Blood Neg (NEG) Urine Nitrite Neg (NEG) Urine Bilirubin Neg (NEG) Urine Urobilinogen Dipstick 1 mg/dL (0.2 mg/dL) Urine Leukocyte Esterase Neg (NEG) Urine RBC 0 /HPF (0-2) Urine WBC Occ /HPF (0-4) Urine Squamous Epithelial Cells Few /LPF Urine Bacteria 0 /HPF (0-FEW) Urine Test Negative (NEG) Urine Opiates Screen Neg (NEG) Urine Methadone Screen Neg (NEG) Urine Barbiturates Neg (NEG) Urine Phencyclidine Screen Neg (NEG) Urine Amphetamine/Methamphetamine Neg (NEG) Urine Benzodiazepines Screen Neg (NEG) Urine Cocaine Screen Neg (NEG) Urine Cannabinoids Screen Neg (NEG) Urine Ethyl Alcohol Neg (NEG) White Blood Count 8.9 x10^3/uL (4.0-11.0) Red Blood Count 4.41 x10^6/uL (3.50-5.40) Hemoglobin 13.5 g/dL (12.0-15.5) Hematocrit 40.3 % (36.0-47.0) Mean Corpuscular Volume 91 fL (79-100) Mean Corpuscular Hemoglobin 31 pg (25-35) Mean Corpuscular Hemoglobin Concent 34 g/dL (31-37) Red Cell Distribution Width 12.9 % (11.5-14.5) Platelet Count 263 x10^3/uL (140-400) Neutrophils (%) (Auto) 44 % (31-73) Lymphocytes (%) (Auto) 50 % (24-48) Monocytes (%) (Auto) 6 % (0-9) Eosinophils (%) (Auto) 0 % (0-3) Basophils (%) (Auto) 0 % (0-3) Neutrophils # (Auto) 3.9 x10^3uL (1.8-7.7) Lymphocytes # (Auto) 4.4 x10^3/uL (1.0-4.8) Monocytes # (Auto) 0.6 x10^3/uL (0.0-1.1) Eosinophils # (Auto) 0.0 x10^3/uL (0.0-0.7) Basophils # (Auto) 0.0 x10^3/uL (0.0-0.2) Platelet Estimate Adequate (ADEQUATE) Sodium Level 143 mmol/L (136-145) Potassium Level 3.6 mmol/L (3.5-5.1) Chloride Level 107 mmol/L (98-107) Carbon Dioxide Level 24 mmol/L (21-32) Anion Gap 12 (6-14) Blood Urea Nitrogen 12 mg/dL (7-20) Creatinine 0.8 mg/dL (0.6-1.0) Estimated GFR (Cockcroft-Gault) 86.0 Glucose Level 105 mg/dL (70-99) Calcium Level 8.7 mg/dL (8.5-10.1) Amylase Level 56 U/L (25-115) Lipase 186 U/L (73-393) Brief Hospital Course Ms. Tyson is a 27 old female who presented with complaints of severe abd. pain. No acute surgical pathology found significant medical pathology found other than constipation. Discharge Information Condition at Discharge: Improved, Stable Disposition/Orders: D/C to Home Dischare Medications Current Medications Ketorolac Tromethamine (Toradol 30mg Vial) 30 mg 1X ONCE IV Last administered on 07/17/18at 03:22; Admin Dose 30 MG; Start 07/17/18 at 03:30; Stop 07/17/18 at 03: 31; Status DC Lactated Ringer's 1,000 ml @ 1,000 mls/hr 1X ONCE IV Last administered on 07/17at 03:21; Admin Dose 1,000 MLS/HR; Start 07/17/18 at 03:30; Stop 07/17/18 at 04 :29; Status DC Ondansetron HCl (Zofran) 8 mg 1X ONCE IV Last administered on 07/17/18at 03:22; Admin Dose 8 MG; Start 07/17/18 at 03:30; Stop 07/17/18 at 03:31; Status DC Magnesium Hydroxide (Milk Of Magnesia) 2,400 mg 1X ONCE PO Last administered on 07/17/18at 03:30; Admin Dose 2,400 MG; Start 07/17/18 at 03:30; Stop 07/17/18 at 03:31; Status DC Iohexol (Omnipaque 240 Mg/ml) 50 ml 1X ONCE PO Last administered on 07/17/18at 05:56; Admin Dose 50 ML; Start 07/17/18 at 03:30; Stop 07/17/18 at 03:31; Status DC Iohexol (Omnipaque 300 Mg/ml) 75 ml 1X ONCE IV Last administered on 07/17/18at 05:56; Admin Dose 75 ML; Start 07/17/18 at 03:30; Stop 07/17/18 at 03:31; Status DC Info (Do NOT chart on this entry -- for MONITORING) 1 each PRN DAILY PRN MC SEE COMMENTS; Start 07/17/18 at 03:30; Stop 07/19/18 at 03:29 Morphine Sulfate (Morphine 10mg Syringe) 10 mg 1X ONCE SQ Last administered on 07/17/18at 04:24; Admin Dose 10 MG; Start 07/17/18 at 04:30; Stop 07/17/18 at 04: 31; Status DC Active Scripts Active Doxycycline Hyclate 100 Mg Tablet. 1 Tab PO BID Zofran Odt (Ondansetron) 8 Mg Tab.rapdis 8 Mg PO QIDPRN PRN Hydrocodone-Ibuprofen 7.5-200 (Hydrocodone/Ibuprofen) 1 Each Tablet 1 Tab PO PRN Q6HRS PRN Discharge Summary Visit Information Final Diagnosis Problems Medical Problems: (1) Pain in the abdomen Status: Acute Brief Hospital Course Allergies Allergies Coded Allergies Type Severity Reaction Last Updated Verified metoclopramide Allergy Unknown 03/20/18 Yes prochlorperazine Allergy Unknown 03/20/18 Yes sumatriptan Allergy Unknown 03/20/18 Yes Vital Signs Vital Signs Date Time Temp Pulse Resp B/P (MAP) Pulse Ox O2 Delivery O2 Flow Rate FiO2 07/17/18 04:55 18 98 Room Air 07/17/18 04:30 78 120/83 (95) 07/17/18 01:45 98.3 Lab Results Laboratory Tests Test 07/17/18 01:55 07/17/18 02:00 Urine Collection Type Unknown Urine Color Yellow Urine Clarity Clear Urine pH 7.0 Urine Specific [place] 1.025 Urine Protein Neg (NEG-TRACE) Urine Glucose (UA) Neg mg/dL (NEG) Urine Ketones (Stick) Neg mg/dL (NEG) Urine Blood Neg (NEG) Urine Nitrite Neg (NEG) Urine Bilirubin Neg (NEG) Urine Urobilinogen Dipstick 1 mg/dL (0.2 mg/dL) Urine Leukocyte Esterase Neg (NEG) Urine RBC 0 /HPF (0-2) Urine WBC Occ /HPF (0-4) Urine Squamous Epithelial Cells Few /LPF Urine Bacteria 0 /HPF (0-FEW) Urine Test Negative (NEG) Urine Opiates Screen Neg (NEG) Urine Methadone Screen Neg (NEG) Urine Barbiturates Neg (NEG) Urine Phencyclidine Screen Neg (NEG) Urine Amphetamine/Methamphetamine Neg (NEG) Urine Benzodiazepines Screen Neg (NEG) Urine Cocaine Screen Neg (NEG) Urine Cannabinoids Screen Neg (NEG) Urine Ethyl Alcohol Neg (NEG) White Blood Count 8.9 x10^3/uL (4.0-11.0) Red Blood Count 4.41 x10^6/uL (3.50-5.40) Hemoglobin 13.5 g/dL (12.0-15.5) Hematocrit 40.3 % (36.0-47.0) Mean Corpuscular Volume 91 fL (79-100) Mean Corpuscular Hemoglobin 31 pg (25-35) Mean Corpuscular Hemoglobin Concent 34 g/dL (31-37) Red Cell Distribution Width 12.9 % (11.5-14.5) Platelet Count 263 x10^3/uL (140-400) Neutrophils (%) (Auto) 44 % (31-73) Lymphocytes (%) (Auto) 50 % (24-48) Monocytes (%) (Auto) 6 % (0-9) Eosinophils (%) (Auto) 0 % (0-3) Basophils (%) (Auto) 0 % (0-3) Neutrophils # (Auto) 3.9 x10^3uL (1.8-7.7) Lymphocytes # (Auto) 4.4 x10^3/uL (1.0-4.8) Monocytes # (Auto) 0.6 x10^3/uL (0.0-1.1) Eosinophils # (Auto) 0.0 x10^3/uL (0.0-0.7) Basophils # (Auto) 0.0 x10^3/uL (0.0-0.2) Platelet Estimate Adequate (ADEQUATE) Sodium Level 143 mmol/L (136-145) Potassium Level 3.6 mmol/L (3.5-5.1) Chloride Level 107 mmol/L (98-107) Carbon Dioxide Level 24 mmol/L (21-32) Anion Gap 12 (6-14) Blood Urea Nitrogen 12 mg/dL (7-20) Creatinine 0.8 mg/dL (0.6-1.0) Estimated GFR (Cockcroft-Gault) 86.0 Glucose Level 105 mg/dL (70-99) Calcium Level 8.7 mg/dL (8.5-10.1) Amylase Level 56 U/L (25-115) Lipase 186 U/L (73-393) Brief Hospital Course Ms. Tyson is a 27 old [sex] who presented with [ ] Discharge Information Dischare Medications Current Medications Ketorolac Tromethamine (Toradol 30mg Vial) 30 mg 1X ONCE IV Last administered on 07/17/18at 03:22; Admin Dose 30 MG; Start 07/17/18 at 03:30; Stop 07/17/18 at 03: 31; Status DC Lactated Ringer's 1,000 ml @ 1,000 mls/hr 1X ONCE IV Last administered on 07/17at 03:21; Admin Dose 1,000 MLS/HR; Start 07/17/18 at 03:30; Stop 07/17/18 at 04 :29; Status DC Ondansetron HCl (Zofran) 8 mg 1X ONCE IV Last administered on 07/17/18at 03:22; Admin Dose 8 MG; Start 07/17/18 at 03:30; Stop 07/17/18 at 03:31; Status DC Magnesium Hydroxide (Milk Of Magnesia) 2,400 mg 1X ONCE PO Last administered on 07/17/18at 03:30; Admin Dose 2,400 MG; Start 07/17/18 at 03:30; Stop 07/17/18 at 03:31; Status DC Iohexol (Omnipaque 240 Mg/ml) 50 ml 1X ONCE PO Last administered on 07/17/18at 05:56; Admin Dose 50 ML; Start 07/17/18 at 03:30; Stop 07/17/18 at 03:31; Status DC Iohexol (Omnipaque 300 Mg/ml) 75 ml 1X ONCE IV Last administered on 07/17/18at 05:56; Admin Dose 75 ML; Start 07/17/18 at 03:30; Stop 07/17/18 at 03:31; Status DC Info (Do NOT chart on this entry -- for MONITORING) 1 each PRN DAILY PRN MC SEE COMMENTS; Start 07/17/18 at 03:30; Stop 07/19/18 at 03:29 Morphine Sulfate (Morphine 10mg Syringe) 10 mg 1X ONCE SQ Last administered on 07/17/18at 04:24; Admin Dose 10 MG; Start 07/17/18 at 04:30; Stop 07/17/18 at 04: 31; Status DC Active Scripts Active Doxycycline Hyclate 100 Mg Tablet. 1 Tab PO BID Zofran Odt (Ondansetron) 8 Mg Tab.rapdis 8 Mg PO QIDPRN PRN Hydrocodone-Ibuprofen 7.5-200 (Hydrocodone/Ibuprofen) 1 Each Tablet 1 Tab PO PRN Q6HRS PRN Dragon Disclaimer This chart was dictated in whole or in part using Voice Recognition software in a busy, high-work load, and often noisy Emergency Department environment. It may contain unintended and wholly unrecognized errors or omissions. EMY ABEL MD Jul 17, 2018 02:03
[2018-07-17 02:38] LABS: BARBITURATES NEG (NEG); BENZODIAZEPINES NEG (NEG); CANNABINOIDS NEG (NEG); COCAINE NEG (NEG); METHADONE NEG (NEG); OPIATES NEG (NEG); PHENCYCLIDINE NEG (NEG)
[2018-07-17 02:40] LABS: BACTERIA,URINE 0 /HPF (0-FEW); BILIRUBIN,URINE NEG (NEG); CLARITY,URINE CLEAR; COLOR,URINE YELLOW; GLUCOSE,URINE NEG (NEG); NITRITE,URINE NEG (NEG); RBC,URINE 0 /HPF (0-2); SQUAMOUS EPITHELIAL CELL,UR FEW /LPF; UROBILINOGEN,URINE 1 mg/dL (0.2 mg/dL); WBC,URINE OCC /HPF (0-4)
[2018-07-17 02:41] LABS: U PREG PATIENT NEGATIVE (NEG)
[2018-07-17 02:43] LABS: AMPHETAMINE/METHAMPHETAMINE NEG (NEG)
[2018-07-17 03:09] LABS: BASO % 0 % (0-3); EOS % 0 % (0-3); HEMATOCRIT 40.3 % (36.0-47.0); HEMOGLOBIN 13.5 g/dL (12.0-15.5); LYMPH # 4.4 x10^3/uL (1.0-4.8); LYMPH % 50 % (24-48); MEAN CORPUSCULAR HEMOGLOBIN 31 pg (25-35); MEAN CORPUSCULAR HGB CONC 34 g/dL (31-37); MEAN CORPUSCULAR VOLUME 91 fL (79-100); MONO # 0.6 x10^3/uL (0.0-1.1); MONO % 6 % (0-9); NEUT # 3.9 x10^3uL (1.8-7.7); NEUT % 44 % (31-73); PLATELET COUNT 263 x10^3/uL (140-400); RED BLOOD COUNT 4.41 x10^6/uL (3.50-5.40); RED CELL DISTRIBUTION WIDTH 12.9 % (11.5-14.5); WHITE BLOOD COUNT 8.9 x10^3/uL (4.0-11.0)
[2018-07-17 03:24] LABS: CALCIUM 8.7 mg/dL (8.5-10.1); CREATININE 0.8 mg/dL (0.6-1.0); POTASSIUM 3.6 mmol/L (3.5-5.1)
[2018-07-17 03:30] LABS: PLT ESTIMATE ADEQUATE (ADEQUATE)
[2018-07-17] MEDS ORDERED: MAGNESIUM HYDROXIDE 2,400 MG/30 ML ORAL.SUSP. PO ONE (03:30)
[2018-07-17] MEDS ORDERED: IV RINGERS SOLUTION,LACTATED 1,000 ML IV ONE (03:30)
[2018-07-17] MEDS ORDERED: IOHEXOL 240 MG/ML 50ML VIAL. PO ONE (03:30)
[2018-07-17] MEDS ORDERED: ONDANSETRON PF 4 MG/2 ML VIAL. IV ONE (03:30)
[2018-07-17] MEDS ORDERED: CONTRAST GIVEN MC PRN (03:30)
[2018-07-17] MEDS ORDERED: KETOROLAC 30 MG/ML VIAL. IV ONE (03:30)
[2018-07-17] MEDS ORDERED: IOHEXOL 300 MG/ML 75 ML VIAL. IV ONE (03:30)
[2018-07-17] MEDS ORDERED: MORPHINE SULFATE 10 MG/ML SYRINGE. SQ ONE (04:30)
--- NOTE | 2018-07-17 06:54 | RAD ---
EXAM: CT ABDOMEN/PELVIS WITH CONTRAST. HISTORY: Abdominal and left flank pain. TECHNIQUE: Computed tomography of the abdomen and pelvis was performed after the intravenous administration of 75 mL Omnipaque 300. COMPARISON: 03/20/2018. FINDINGS: Lung windows through the visualized portions of the bases reveal mild atelectasis. Bone windows reveal no suspicious lesions. The appendix is surgically absent. There is no small bowel obstruction. The liver, gallbladder, pancreas, adrenal glands and spleen are unremarkable. There are no pathologically enlarged lymph nodes. There is a retroaortic left renal vein. The kidneys are unremarkable without hydronephrosis. IMPRESSION: 1. No cause for pain is identified. *One or more of the following individualized dose reduction techniques were utilized for this examination: 1. Automated exposure control. 2. Adjustment of the mA and/or kV according to patient size. 3. Use of iterative reconstruction technique. Electronically signed by: Lexie Hall MD (07/17/2018 6:49 AM) [id number]
[2018-07-17 07:10] VITALS: BP 132/75
--- NOTE | 2018-07-17 08:05 | RAD ---
Indication:Left flank pain x5 days. Hx kidney stones, ovarian cysts TECHNIQUE:PA chest and 3 views of the abdomen and pelvis COMPARISON: None FINDINGS: Heart is normal in size. Lungs are clear. No pneumothorax or pleural effusion. No pneumoperitoneum. No abnormally dilated bowel loops. No abnormal calcifications projecting over the expected locations of the kidneys to suggest apparent renal stones. Moderate diffuse chronic stool burden. Visualized bones are within normal limits. IMPRESSION: No acute radiographic findings. If concern for renal stone is high, please consider CT abdomen pelvis without IV contrast. Electronically signed by: Inder Kelly DO (07/17/2018 8:00 AM) [id number]
== END 2018-07-17 07:10 | disposition home or self-care (01) ==
LOC: ER 01:45
DX: K59.00 Constipation, unspecified (principal); R10.9 Unspecified abdominal pain; F43.10 Post-traumatic stress disorder, unspecified; K58.9 Irritable bowel syndrome, unspecified; F31.9 Bipolar disorder, unspecified; F41.9 Anxiety disorder, unspecified; G43.909 Migraine, unspecified, not intractable, without status migrainosus; Z87.442 Personal history of urinary calculi; Z87.440 Personal history of urinary (tract) infections; Z90.89 Acquired absence of other organs; Z88.8 Allergy status to other drugs, medicaments and biological substances
CPT/HCPCS: 36415; 74022; 74177; 80048; 80307; 81001; 81025; 82150; 83690; 85025; 96372; 96374; 96375; 99284; J1885; J2270; J2405; J7120; Q9966; Q9967